=== PATIENT | male | born 1955 | race Caucasian/White ===

== ENCOUNTER 2020-12-23 12:56 | Inpatient (IN) | payer MEDICARE ==
[~2020-12-23] VITALS: Ht 177.8 cm; Wt 107.7 kg
[2020-12-23 12:56] VITALS: BP 142/55
[2020-12-23 13:41] LABS: BASO % 0.3 % (0.0-1.0); EOS % 0.1 % (1.0-4.0); HEMATOCRIT 44.4 % (42.0-52.0); LYMPH # 0.9 10*3/uL (1.3-4.4); LYMPH % 11.5 % (27.0-41.0); MEAN CELL VOLUME 95.3 fl (80.0-94.0); MEAN CORPUSCULAR HGB 31.8 pg (27.0-31.0); MEAN CORPUSCULAR HGB CONC 33.3 g/dl (33.0-37.0); MEAN PLATELET VOLUME 9.5 fl (9.6-12.3); MONO # 0.6 10*3/uL (0.1-1.0); MONO % 8.2 % (3.0-9.0); NEUT # 6.2 10*3/uL (2.3-7.9); NEUT % 79.5 % (47.0-73.0); PLATELET COUNT AUTOMATED 194 10*3/uL (130-400); RED BLOOD COUNT 4.66 10*6/uL (4.50-5.90); RED CELL DISTRI WIDTH 12.1 % (0-14.5); WHITE BLOOD COUNT 7.8 10*3/uL (4.8-10.8)
[2020-12-23 13:57] LABS: ACT PARTIAL THROMBO TIME 29.5 SECONDS (20.0-32.1)
[2020-12-23 13:58] LABS: ALBUMIN 3.5 gm/dl (3.1-4.5); ALKALINE PHOSPHATASE 71 U/L (45-117); BUN 13 mg/dl (7-24); CHLORIDE 104 mmol/L (98-107); CPK 207 U/L (39-308); CREATININE 0.86 mg/dL (0.70-1.30); POTASSIUM 4.2 mmol/L (3.5-5.1); SGOT/AST 16 IU/L (3-35); SGPT/ALT 26 U/L (12-78); SODIUM 136 mmol/L (136-145)
[2020-12-23] MEDS ORDERED: FARXIGA10 M1 PO (14:00)
[2020-12-23] MEDS ORDERED: JANUVIA50 MG PO (14:00)
[2020-12-23] MEDS ORDERED: GLYBURIDE5 MG PO (14:01)
[2020-12-23 14:02] LABS: TROPONIN I < 0.015 ng/ml (<0.045)
[2020-12-23] MEDS ORDERED: QUINAPRIL10 M1 PO (14:02)
[2020-12-23] MEDS ORDERED: METFORMIN HYD1000 MG PO ×3 (14:03→19:53)
[2020-12-23] MEDS ORDERED: ASPIRIN81 M1 PO (14:04)
[2020-12-23] MEDS ORDERED: FISH OIL 1,0001 EAC3 PO (14:04)
[2020-12-23] MEDS ORDERED: IRON325 M1 PO (14:05)
[2020-12-23 15:23] VITALS: BP 153/73
[2020-12-23 17:31] VITALS: BP 141/74
[2020-12-23] MEDS ORDERED: ZOLPIDEM TART5 MG PO (19:55)
[2020-12-23 22:15] VITALS: BP 141/60
[2020-12-24 06:22] LABS: BASO % 0.3 % (0.0-1.0); EOS # 0.1 10*3/uL (0.0-0.4); HEMATOCRIT 42.1 % (42.0-52.0); LYMPH # 1.4 10*3/uL (1.3-4.4); LYMPH % 21.4 % (27.0-41.0); MEAN CELL VOLUME 95.9 fl (80.0-94.0); MEAN CORPUSCULAR HGB 31.2 pg (27.0-31.0); MEAN CORPUSCULAR HGB CONC 32.5 g/dl (33.0-37.0); MONO # 0.9 10*3/uL (0.1-1.0); MONO % 13.5 % (3.0-9.0); NEUT % 63.3 % (47.0-73.0); PLATELET COUNT AUTOMATED 183 10*3/uL (130-400); RED BLOOD COUNT 4.39 10*6/uL (4.50-5.90); RED CELL DISTRI WIDTH 12.2 % (0-14.5); WHITE BLOOD COUNT 6.3 10*3/uL (4.8-10.8)
[2020-12-24 06:44] LABS: ALBUMIN 3.3 gm/dl (3.1-4.5); CHLORIDE 103 mmol/L (98-107); POTASSIUM 3.8 mmol/L (3.5-5.1); SODIUM 136 mmol/L (136-145)
[2020-12-24 06:51] LABS: ALKALINE PHOSPHATASE 64 U/L (45-117); BUN 14 mg/dl (7-24); CREATININE 0.75 mg/dL (0.70-1.30); LDH 162 U/L (87-241); SGOT/AST 20 IU/L (3-35); SGPT/ALT 26 U/L (12-78); TOTAL PROTEIN 6.4 gm/dL (6.4-8.2)
[2020-12-24 08:00] VITALS: BP 136/64
[2020-12-24 13:00] VITALS: BP 149/61
[2020-12-24] MEDS ORDERED: MUCUS RELIEF600 MG PO (14:15)
[2020-12-24] MEDS ORDERED: PREDNISONE10 MG PO (14:15)
== END 2020-12-24 15:30 | disposition home or self-care (01) | DRG 206 ==
LOC: ED 12:56 → 4E 15:19 → EDHOLD 15:19 → 4E 21:08
PROVIDERS: Emergency Medicine; Internal Medicine; ADMIT Internal Medicine; ATTEND Internal Medicine
PROC: XW033E5 Introduction of Remdesivir Anti-infective into Peripheral Vein, Percutaneous Approach, New Technology Group 5 (ICD-10-PCS; principal; 2020-12-24)
DX: M94.0 Chondrocostal junction syndrome [Tietze] (principal); Z20.822 Contact with and (suspected) exposure to COVID-19; R09.02 Hypoxemia; F17.219 Nicotine dependence, cigarettes, with unspecified nicotine-induced disorders; E11.65 Type 2 diabetes mellitus with hyperglycemia; E83.51 Hypocalcemia; I10 Essential (primary) hypertension; D72.810 Lymphocytopenia; D53.9 Nutritional anemia, unspecified; Z90.49 Acquired absence of other specified parts of digestive tract; Z82.0 Family history of epilepsy and other diseases of the nervous system; Z79.82 Long term (current) use of aspirin; Z79.899 Other long term (current) drug therapy

== ENCOUNTER 2023-08-03 18:22 | Emergency (ER) | payer MEDICARE ==
[~2023-08-03] VITALS: Wt 113.4 kg
[~2023-08-03 18:22] MED LIST: ASPIRIN81 M1 PO; FARXIGA10 M1 PO; FISH OIL 1,0001 EAC3 PO; GLYBURIDE5 MG PO; IRON325 M1 PO; JANUVIA50 MG PO; METFORMIN HYD1000 MG PO; MUCUS RELIEF600 MG PO; PREDNISONE10 MG PO; QUINAPRIL10 M1 PO; ZOLPIDEM TART5 MG PO
[2023-08-03] MEDS ORDERED: Albuterol Sulfate 2.5 MG/3 ML VIAL NEB ONE (18:45)
[2023-08-03] MEDS ORDERED: methylPREDNISolone sod succ 125 MG VIAL IM ONE (18:45)
[2023-08-03 18:56] LABS: BASO % 0.3 % (0.0-1.0); HEMATOCRIT 42.7 % (42.0-52.0); LYMPH # 0.9 10*3/uL (1.3-4.4); LYMPH % 7.6 % (27.0-41.0); MEAN CELL VOLUME 96.2 fl (80.0-94.0); MEAN CORPUSCULAR HGB 32.7 pg (27.0-31.0); MEAN PLATELET VOLUME 9.7 fl (9.6-12.3); MONO # 0.8 10*3/uL (0.1-1.0); MONO % 6.3 % (3.0-9.0); NEUT # 10.2 10*3/uL (2.3-7.9); NEUT % 85.5 % (47.0-73.0); PLATELET COUNT AUTOMATED 210 10*3/uL (130-400); RED BLOOD COUNT 4.44 10*6/uL (4.50-5.90); RED CELL DISTRI WIDTH 12.3 % (0-14.5); WHITE BLOOD COUNT 11.9 10*3/uL (4.8-10.8)
[2023-08-03 19:08] LABS: ACT PARTIAL THROMBO TIME 30.8 SECONDS (20.0-32.1)
[2023-08-03 19:16] LABS: BUN 7 mg/dl (9-23); CHLORIDE 103 mmol/L (98-107); POTASSIUM 4.1 mmol/L (3.4-5.1)
[2023-08-03] MEDS ORDERED: MAGNESIUM SULFATE 100 ML IV ONE (20:15)
[2023-08-03] MEDS ORDERED: ALBUTEROL 8 GM INHALER INH ONE (20:35)
[2023-08-03] MEDS ORDERED: PREDNISONE50 MG PO (21:19)
[2023-08-03] MEDS ORDERED: ZITHROMAX250 MG PO (21:19)
[2023-08-03] MEDS ORDERED: ONDANSETRON4 MG SL (21:40)
== END 2023-08-03 22:15 | disposition home or self-care (01) ==
LOC: ED 18:22
PROVIDERS: Nurse Practitioner
DX: J44.1 Chronic obstructive pulmonary disease with (acute) exacerbation (principal); F17.200 Nicotine dependence, unspecified, uncomplicated; Z79.899 Other long term (current) drug therapy; Z79.82 Long term (current) use of aspirin; Z90.49 Acquired absence of other specified parts of digestive tract